=== PATIENT | female | born 1940 | race Caucasian/White ===

== ENCOUNTER 2022-07-11 13:59 | Inpatient (IN) | payer OTHER, MEDICARE, BC ==
[~2022-07-11] VITALS: Ht 152.4 cm; Wt 76.5 kg
[2022-07-11] MEDS ORDERED: AMIODARONE 450mg/250ml AE 250 ML IV SCH (15:30)
[2022-07-11] MEDS ORDERED: AMIODARONE HCL 150 MG in D5W 5% 100 ML IV ONE (15:30)
[2022-07-11 15:34] LABS: Albumin 2.2 g/dL (3.4-5.0); Calcium 8.7 mg/dL (8.5-10.1); Potassium 3.6 mmol/L (3.5-5.1)
[2022-07-11 15:36] LABS: INR 1.24 (0.9-1.15); Partial Thromboplastin Time 26.9 sec (24.6-33.4)
[2022-07-11 15:38] LABS: Total Protein 6.5 g/dL (6.4-8.2)
[2022-07-11] MEDS ORDERED: ENOXAPARIN SOD 60 MG/0.6 ML SYRINGE SC ONE (16:15)
[2022-07-11 16:30] LABS: Basophils # (auto) 0.1 10 ^3/uL (0-0.2); Eosinophils # (auto) 0 10 ^3/uL (0-0.8); Eosinophils % (auto) 0.1 % (0.0-7.0); Hemoglobin 12.4 g/dL (12.2-16.2); White Blood Cell 21.2 10^3/uL (4.4-10.8)
[2022-07-11 16:31] LABS: Basophils % (auto) 0.5 % (0.0-2.0); Hematocrit 39.7 % (36.0-46.0); Lymphocytes # (auto) 0.8 10 ^3/uL (0.4-5.4); Lymphocytes % (auto) 3.6 % (10.0-50.0); Mean Corpuscular Hemoglobin 27.5 pg (28.0-32.0); Mean Corpuscular Hgb Conc. 31.2 g/dL (32.0-36.0); Mean Corpuscular Volume 88.2 fL (80.0-100.0); Monocytes # (auto) 0.9 10 ^3/uL (0-1.3); Monocytes % (auto) 4.2 % (0.0-12.0); Neutrophils # (auto) 19.4 10 ^3/uL (1.6-8.6); Neutrophils % (auto) 91.6 % (37.0-80.0); Nucleated Red Blood Cells % 0.1 %; Red Cell Distribution Width 16.4 % (11.8-14.3)
[2022-07-11 17:46] LABS: Urine Bacteria MOD /hpf (None Seen); Urine Blood TRACE /uL (Negative); Urine Budding Yeast FEW /hpf (None Seen); Urine Hyaline Cast MANY /lpf (0 - 2); Urine Specific Gravity 1.013 (1.001-1.035); Urine WBC 815 /hpf (0 - 5); Urine WBC Clumps PRESENT /hpf (None Seen)
[2022-07-11 17:52] LABS: Lactic Acid w/Reflex 2.9 mmol/L (0.4-2.0)
[2022-07-11] MEDS ORDERED: SODIUM CHLORIDE 0.9% 1,000 ML IV ONE ×2 (18:45)
[2022-07-11] MEDS ORDERED: cefTRIAXone 1GM/50ML D5W 50 ML IV ONE (18:45)
[2022-07-11] MEDS ORDERED: AZITHROMYCIN 500MG/ 250ML 250 ML IV ONE (18:45)
[2022-07-11] MEDS ORDERED: DOCUSATE SOD 100 MG CAP PO PRN (20:15)
[2022-07-11] MEDS ORDERED: ALPRAZolam 0.5 MG TAB PO PRN (20:15)
[2022-07-11] MEDS ORDERED: HYDROcodone-ACET 5/325MG TAB PO PRN (20:15)
[2022-07-11] MEDS ORDERED: DEXTROSE (50%) 50ML SYRG IV PRN (20:15)
[2022-07-11] MEDS ORDERED: ACETAMINOPHEN 325 MG TAB PO PRN (20:15)
[2022-07-11] MEDS ORDERED: ONDANSETRON HCL 4 MG/2 ML VIAL IV PRN (20:15)
[2022-07-11] MEDS ORDERED: NITROGLYCERIN 0.4 MG SL TAB SL PRN (20:15)
[2022-07-11] MEDS ORDERED: MORPHINE SULFATE INJ 2 MG/ml SYRG IV PRN (20:15)
[2022-07-11] MEDS: ACCU-CHEK COMFORT CURVE STRIP VI SCH (22:02)
[2022-07-11] MEDS: InsuLIN REG 1unit/0.01ml Soln (100units/ml) SC SCH (22:02)
[2022-07-12] MEDS: ACCU-CHEK COMFORT CURVE STRIP VI SCH ×4 (07:00→21:18)
[2022-07-12] MEDS: InsuLIN REG 1unit/0.01ml Soln (100units/ml) SC SCH ×4 (07:00→21:18)
[2022-07-12 08:07] LABS: Urine Bacteria MANY /hpf (None Seen); Urine Blood TRACE /uL (Negative); Urine Hyaline Cast FEW /lpf (0 - 2); Urine Mucus FEW (None Seen); Urine Specific Gravity 1.015 (1.001-1.035); Urine WBC 148 /hpf (0 - 5); Urine WBC Clumps PRESENT /hpf (None Seen)
[2022-07-12] MEDS: cefTRIAXone 1GM/50ML D5W 50 ML IV SCH (09:12)
[2022-07-12] MEDS: AZITHROMYCIN 500MG/ 250ML 250 ML IV SCH (10:24)
[2022-07-12] MEDS: PANTOPRAZOLE 40 MG/10 ML VIAL INJ IV SCH (10:24)
[2022-07-12] MEDS ORDERED: METOPROLOL TARTRATE 50 MG TAB PO ONE (12:15)
[2022-07-12] MEDS ORDERED: LORazepam 2MG/ML-1ML VIAL IV PRN (12:45)
[2022-07-12 18:30] VITALS: BP 102/72
[2022-07-12] MEDS ORDERED: BISA10SU16 (18:59)
[2022-07-12] MEDS ORDERED: ACET650S12 PR (18:59)
[2022-07-12] MEDS ORDERED: HALO2CON8 PO (18:59)
[2022-07-12] MEDS ORDERED: LORA0.5T20 (18:59)
[2022-07-12] MEDS ORDERED: MORP1SOL9 PO (18:59)
[2022-07-12] MEDS ORDERED: HYOS0.1289 SL (18:59)
[2022-07-12] MEDS ORDERED: SUCR1TAB PO (18:59)
[2022-07-12] MEDS ORDERED: OXYB5TAB24 (18:59)
[2022-07-12 20:00] VITALS: BP 100/71
[2022-07-12] MEDS: METOPROLOL TARTRATE 50 MG TAB PO SCH (22:00)
[2022-07-13] MEDS ORDERED: AMIODARONE 450mg/250ml AE 250 ML IV ONE (01:49)
[2022-07-13] MEDS ORDERED: AMIODARONE HCL (50 MG/ ML) 3 ML VIAL IV ONE (01:51)
[2022-07-13] MEDS ORDERED: AMIODARONE HCL 150 MG in D5W 5% 100 ML IV ONE (02:00)
[2022-07-13] MEDS ORDERED: AMIODARONE 450mg/250ml AE 250 ML IV SCH (02:00)
[2022-07-13] MEDS: InsuLIN REG 1unit/0.01ml Soln (100units/ml) SC SCH ×4 (06:38→22:00)
[2022-07-13] MEDS: ACCU-CHEK COMFORT CURVE STRIP VI SCH ×4 (07:41→22:02)
[2022-07-13 09:00] VITALS: BP 134/77
[2022-07-13] MEDS: PANTOPRAZOLE 40 MG/10 ML VIAL INJ IV SCH (10:25)
[2022-07-13] MEDS: cefTRIAXone 1GM/50ML D5W 50 ML IV SCH (10:26)
[2022-07-13] MEDS: AZITHROMYCIN 500MG/ 250ML 250 ML IV SCH (11:53)
[2022-07-13] MEDS: AMIODARONE 450mg/250ml AE 250 ML IV SCH ×2 (12:43→23:00)
[2022-07-13] MEDS: D5W/SOD CHLO 0.9% 1,000 ML IV SCH ×2 (12:45→19:30)
[2022-07-13] MEDS: METOPROLOL TARTRATE 50 MG TAB PO SCH ×2 (12:45→22:02)
[2022-07-13 13:00] VITALS: BP 108/68
[2022-07-13 15:35] VITALS: BP 135/78
[2022-07-13 22:00] VITALS: BP 129/68
[2022-07-14] MEDS: D5W/SOD CHLO 0.9% 1,000 ML IV SCH ×3 (03:30→18:16)
[2022-07-14 04:49] VITALS: BP 122/68
[2022-07-14] MEDS: InsuLIN REG 1unit/0.01ml Soln (100units/ml) SC SCH ×4 (06:02→22:39)
[2022-07-14] MEDS: ACCU-CHEK COMFORT CURVE STRIP VI SCH ×4 (06:03→22:38)
[2022-07-14 08:30] VITALS: BP 135/66
[2022-07-14] MEDS: PANTOPRAZOLE 40 MG/10 ML VIAL INJ IV SCH (08:31)
[2022-07-14] MEDS: cefTRIAXone 1GM/50ML D5W 50 ML IV SCH (08:31)
[2022-07-14] MEDS: AMIODARONE HCL 200 MG TAB PO SCH ×2 (08:39→22:37)
[2022-07-14] MEDS: METOPROLOL TARTRATE 50 MG TAB PO SCH ×2 (08:39→22:38)
[2022-07-14 08:45] VITALS: BP 135/66
[2022-07-14] MEDS: AZITHROMYCIN 500MG/ 250ML 250 ML IV SCH (10:21)
[2022-07-14] MEDS: AMIODARONE 450mg/250ml AE 250 ML IV SCH (12:23)
[2022-07-14] MEDS: ENSURE CLEAR Mixed Berry 8oz Carton PO SCH ×2 (13:34→17:44)
[2022-07-14 15:20] VITALS: BP 120/59
[2022-07-14 17:02] VITALS: BP 103/55
[2022-07-14 20:38] VITALS: BP 101/54
[2022-07-15] MEDS: D5W/SOD CHLO 0.9% 1,000 ML IV SCH ×3 (03:45→19:30)
[2022-07-15] MEDS: AMIODARONE 450mg/250ml AE 250 ML IV SCH (05:00)
[2022-07-15] MEDS: InsuLIN REG 1unit/0.01ml Soln (100units/ml) SC SCH ×4 (06:14→22:00)
[2022-07-15] MEDS: ACCU-CHEK COMFORT CURVE STRIP VI SCH ×4 (07:00→22:13)
[2022-07-15] MEDS: cefTRIAXone 1GM/50ML D5W 50 ML IV SCH ×2 (09:29→09:36)
[2022-07-15] MEDS: AMIODARONE HCL 200 MG TAB PO SCH ×3 (09:30→22:00)
[2022-07-15] MEDS: PANTOPRAZOLE 40 MG/10 ML VIAL INJ IV SCH (09:30)
[2022-07-15] MEDS: METOPROLOL TARTRATE 50 MG TAB PO SCH ×3 (09:30→22:00)
[2022-07-15] MEDS: ENSURE CLEAR Mixed Berry 8oz Carton PO SCH ×3 (09:30→17:56)
[2022-07-15] MEDS: DOXYCYCLINE 100 MG TAB/CAP PO SCH ×2 (09:36→22:00)
[2022-07-15 09:42] LABS: Basophils # (auto) 0.1 10 ^3/uL (0-0.2); Basophils % (auto) 0.4 % (0.0-2.0); Eosinophils # (auto) 0.1 10 ^3/uL (0-0.8); Eosinophils % (auto) 0.8 % (0.0-7.0); Hematocrit 35.3 % (36.0-46.0); Hemoglobin 11.1 g/dL (12.2-16.2); Lymphocytes # (auto) 0.9 10 ^3/uL (0.4-5.4); Lymphocytes % (auto) 5.9 % (10.0-50.0); Mean Corpuscular Hemoglobin 27.8 pg (28.0-32.0); Mean Corpuscular Hgb Conc. 31.6 g/dL (32.0-36.0); Mean Corpuscular Volume 88.1 fL (80.0-100.0); Monocytes % (auto) 6.6 % (0.0-12.0); Neutrophils # (auto) 13.6 10 ^3/uL (1.6-8.6); Neutrophils % (auto) 86.3 % (37.0-80.0); Red Blood Cells 4.01 10^6/uL (4.0-5.20); Red Cell Distribution Width 16.2 % (11.8-14.3); White Blood Cell 15.7 10^3/uL (4.4-10.8)
[2022-07-15 10:40] LABS: BUN/Creatinine Ratio 23.5 (10.0-20.0); Calcium 7.8 mg/dL (8.5-10.1); Potassium 3.1 mmol/L (3.5-5.1)
[2022-07-15 13:00] VITALS: BP 146/83
[2022-07-15 21:37] VITALS: BP 155/78
[2022-07-16 05:12] VITALS: BP 138/76
[2022-07-16] MEDS: D5W/SOD CHLO 0.9% 1,000 ML IV SCH ×2 (05:30→08:27)
[2022-07-16] MEDS: ACCU-CHEK COMFORT CURVE STRIP VI SCH ×2 (06:18→11:30)
[2022-07-16] MEDS: InsuLIN REG 1unit/0.01ml Soln (100units/ml) SC SCH ×2 (06:19→11:30)
[2022-07-16] MEDS: PANTOPRAZOLE 40 MG/10 ML VIAL INJ IV SCH (08:27)
[2022-07-16] MEDS: cefTRIAXone 1GM/50ML D5W 50 ML IV SCH (08:27)
[2022-07-16] MEDS: ENSURE CLEAR Mixed Berry 8oz Carton PO SCH ×2 (08:28→13:24)
[2022-07-16] MEDS: DOXYCYCLINE 100 MG TAB/CAP PO SCH (10:00)
[2022-07-16] MEDS: AMIODARONE HCL 200 MG TAB PO SCH (10:00)
[2022-07-16] MEDS: METOPROLOL TARTRATE 50 MG TAB PO SCH (10:00)
[2022-07-16] MEDS ORDERED: METO-158 PO (10:32)
[2022-07-16] MEDS ORDERED: CIPR-173 PO (10:32)
[2022-07-16] MEDS ORDERED: AMIO200T33 PO (10:32)
[2022-07-16] MEDS ORDERED: DOXY-346 PO (10:32)
[2022-07-16 11:46] LABS: Urine Bacteria FEW /hpf (None Seen); Urine Blood 2+ /uL (Negative); Urine Specific Gravity 1.019 (1.001-1.035); Urine WBC 297 /hpf (0 - 5); Urine WBC Clumps PRESENT /hpf (None Seen)
[2022-07-16 12:41] VITALS: BP 101/63
== END 2022-07-16 17:49 | disposition hospice, home (50) | DRG 871 ==
LOC: ER 13:59 → EDBD 13:59 → TELE 20:08 → TELE-WESTW 07-12 17:37
PROVIDERS: ADMIT Nurse Practitioner Family; ATTEND Family Medicine
DX: A41.9 Sepsis, unspecified organism (principal); E43 Unspecified severe protein-calorie malnutrition; J18.9 Pneumonia, unspecified organism; J96.01 Acute respiratory failure with hypoxia; N39.0 Urinary tract infection, site not specified; J44.0 Chronic obstructive pulmonary disease with (acute) lower respiratory infection; E11.65 Type 2 diabetes mellitus with hyperglycemia; I48.0 Paroxysmal atrial fibrillation; Z66 Do not resuscitate; E86.0 Dehydration; F03.90 Unspecified dementia, unspecified severity, without behavioral disturbance, psychotic disturbance, mood disturbance, and anxiety; R62.7 Adult failure to thrive; R77.8 Other specified abnormalities of plasma proteins; Z68.32 Body mass index [BMI] 32.0-32.9, adult; Z87.440 Personal history of urinary (tract) infections; Z51.5 Encounter for palliative care
CPT/HCPCS: 36415; 71045; 80048; 80053; 81001; 82962; 83605; 83880; 84484; 85025; 85610; 85730; 87040; 87086; 93005; 93306; 93971; 96361; 96365; 96366; 96367; 96372; 96375; 99291; C9113; G0378; J0696; J1815; J7042; J7060